=== PATIENT | female | born 1945 | race Caucasian/White ===

== ENCOUNTER 2019-08-20 18:58 | Emergency (ER) | payer MEDICARE, BC ==
[~2019-08-20] VITALS: Ht 165.1 cm; Wt 75.0 kg
[~2019-08-20 18:58] MED LIST: ACET-1600 PO; ASPI81TA45 PO; ASPI81TA50 PO; ATOR40TA78 PO; CYAN25009 PO; FURO20TA3 PO; LISI-167 PO; MELO7.5T31 PO; OXYC5CAP2 PO; POTA10TA31 PO; SPIR25TA5 PO; TRAM50TA2 PO; TURM538C PO
--- NOTE | 2019-08-20 19:26 | NUR ---
Pt c/o recent R hip replacement and bilateral lbp w/ pain radiating down R hip since. Pt denies any numbness tingling in affected extremity. Denies any incontinence. No outward rotation and pt has rom w/ hip. at bedside for assessment.
[2019-08-20] MEDS ORDERED: ACETAMINOPHEN 500 MG TABLET ONE (19:58)
[2019-08-20] MEDS ORDERED: KETOROLAC 30 MG/1 ML ONE (19:58)
[2019-08-20] MEDS ORDERED: DIAZEPAM 5 MG/ML, 2ML ONE (19:59)
[2019-08-20] MEDS ORDERED: DIAZEPAM 5 MG/ML, 2ML IV ONE (20:00)
[2019-08-20] MEDS ORDERED: ACETAMINOPHEN 500 MG TABLET PO ONE (20:00)
[2019-08-20] MEDS ORDERED: KETOROLAC 30 MG/1 ML IVPush ONE (20:00)
[2019-08-20 20:09] LABS: BASOPHILS # (AUTO) 0.06 x10^3/uL (0-0.1); BASOPHILS % (AUTO) 1 % (0-1); EOSINOPHILS # (AUTO) 0.22 x10^3/uL (0-0.4); EOSINOPHILS % (AUTO) 2 % (1-7); LYMPHOCYTES # (AUTO) 1.78 x10^3/uL (1-3.4); LYMPHOCYTES % (AUTO) 17 % (22-44); MD NO; MEAN CORPUSCULAR HEMOGLOBIN 31.8 pg (27.0-34.8); MEAN CORPUSCULAR HGB CONC 33.1 g/dL (32.4-35.8); MEAN CORPUSCULAR VOLUME 96.3 fL (80-100); MEAN PLATELET VOLUME 7.9 fL (7.4-10.4); MONOCYTES % (AUTO) 8 % (2-9); NEUTROPHILS # (AUTO) 7.83 x10^3/uL (1.8-6.8); NEUTROPHILS % (AUTO) 73 % (42-75); PLATELET COUNT 392 x10^3/uL (130-400); RED BLOOD COUNT 3.46 x10^6/uL (3.82-5.3); RED CELL DISTRIBUTION WIDTH 17.5 % (9.6-15.2)
[2019-08-20 20:10] LABS: HCT (SEDRATE) 33.4 % (34.6-47.8)
[2019-08-20 20:19] LABS: ALBUMIN 3.1 g/dL (3.4-5.0); ANION GAP 5 mmol/L (5-15); CHLORIDE 110 mmol/L (98-107); CREATININE 1.02 mg/dL (0.55-1.02)
[2019-08-20 21:43] VITALS: BP 132/70
--- NOTE | 2019-08-20 21:43 | NUR ---
All results back, pt up for recheck. Pt states relief from all pain. Sleeping comfortably on gurney. Rr even and unlabored.
--- NOTE | 2019-08-20 22:20 | NUR ---
Pt amb w/ steady gait to rr w/ walker. Md notified. Awaiting d/c instructions.
== END 2019-08-20 22:41 | disposition home or self-care (01) ==
LOC: ED 19:57
DX: M54.41 Lumbago with sciatica, right side (principal); I11.0 Hypertensive heart disease with heart failure; I50.9 Heart failure, unspecified; Z96.641 Presence of right artificial hip joint; F17.200 Nicotine dependence, unspecified, uncomplicated
CPT/HCPCS: 36415; 71045; 73502; 73564; 80048; 82040; 85025; 85651; 86140; 93005; 93971; 96374; 96375; 99284; J1885; J3360

== ENCOUNTER 2021-02-02 10:59 | Outpatient (CLI) | payer MEDICARE, BC | END 2021-02-02 23:59 | disposition home or self-care (01) | LOC: CFH 10:59 | PROVIDERS: ATTEND Internal Medicine Cardiovascular Disease | DX: I08.3 Combined rheumatic disorders of mitral, aortic and tricuspid valves (principal) | CPT/HCPCS: 93306 ==